=== PATIENT | female | born 1985 | race Caucasian/White ===

== ENCOUNTER → 2017-07-22 | Outpatient (CLI) | payer OTHER ==
[~2017-07-22] VITALS: Ht 154.9 cm; Wt 90.0 kg
[~2017-07-22] MED LIST: AMOXICILLIN875 MG PO; CHROMAGEN,1 CAPSULE PO; DAILY VALUE1 EACH PO; ENDOCET 5-3251 EACH PO; IBUPROFEN800 MG PO; IRON325 M1 PO; KEFLEX500 MG PO; NAPROSYN500 MG PO; PEN-VEE K,VEET500 MG PO; PRAVACHOL40 MG PO; PRENATAL TABLE1 EAC3 PO
[2017-07-22 14:10] VITALS: BP 101/64
== END | disposition home or self-care (01) ==
LOC: IVINF 13:55
DX: Z31.82 Encounter for Rh incompatibility status (principal)
CPT/HCPCS: 96372; J2790

== ENCOUNTER 2017-10-13 08:46 | Inpatient (IN) | payer OTHER ==
[~2017-10-13] VITALS: Ht 157.5 cm; Wt 92.3 kg
[2017-10-13] VITALS (8 sets, daily range): BP systolic 104–124; BP diastolic 54–65
[2017-10-13 11:15] LABS: EOSINOPHIL (%) 0.8 % (0-5); EOSINOPHIL COUNT 0.1 K/uL (0-0.3); HEMATOCRIT 28.5 % (36.0-46.0); IMMATURE GRANULOCYTE (%) 0.6 % (0.0-0.7); IMMATURE GRANULOCYTE COUNT 0.1 K/uL; INSTRUMENT ABS NEUTROPHIL CT 6.8 K/uL; LYMPHOCYTE COUNT 1.1 K/uL (1.0-2.8); MCHC 33.7 G/DL (30.0-36.0); MCV 89.1 FL (83-99); MEAN PLAT.VOLUME 10.4 uM^3 (9.5-12.4); MONOCYTE (%) 5.6 % (3-12); MONOCYTE COUNT 0.5 K/uL (0-0.8); NEUTROPHIL (%) 79.4 % (45-76); NEUTROPHIL COUNT 6.8 K/uL (1.8-6.4); PLATELET COUNT 223 K/uL (156-360); RBC DIS.WIDTH-CV 14.2 % (11.8-14.6); RBC DIS.WIDTH-SD 46.4 % (39-53); WHITE BLOOD COUNT 8.5 K/uL (4.1-10.2)
[2017-10-14 03:28] VITALS: BP 95/50
[2017-10-14 07:13] LABS: EOSINOPHIL (%) 0.6 % (0-5); EOSINOPHIL COUNT 0.1 K/uL (0-0.3); HEMATOCRIT 26.3 % (36.0-46.0); IMMATURE GRANULOCYTE (%) 0.6 % (0.0-0.7); IMMATURE GRANULOCYTE COUNT 0.1 K/uL; LYMPHOCYTE COUNT 1.7 K/uL (1.0-2.8); MCH 29.4 PG (29.0-34.0); MCHC 33.1 G/DL (30.0-36.0); MCV 88.9 FL (83-99); MEAN PLAT.VOLUME 10.3 uM^3 (9.5-12.4); MONOCYTE (%) 8.4 % (3-12); MONOCYTE COUNT 1.1 K/uL (0-0.8); NEUTROPHIL (%) 77.4 % (45-76); PLATELET COUNT 248 K/uL (156-360); RBC DIS.WIDTH-CV 14.3 % (11.8-14.6); RBC DIS.WIDTH-SD 45.8 % (39-53); RED BLOOD COUNT 2.96 M/uL (3.80-5.20); WHITE BLOOD COUNT 12.9 K/uL (4.1-10.2)
[2017-10-14 07:21] VITALS: BP 106/56
[2017-10-14 10:21] VITALS: BP 116/56
[2017-10-14 14:40] VITALS: BP 117/59
[2017-10-14 19:04] VITALS: BP 107/55
[2017-10-14 23:00] VITALS: BP 97/52
[2017-10-15 03:00] VITALS: BP 94/50
[2017-10-15 07:24] VITALS: BP 109/60
[2017-10-15] MEDS ORDERED: ENDOCET 5-3251 EACH PO (10:49)
[2017-10-15] MEDS ORDERED: IBUPROFEN800 MG PO (10:49)
[2017-10-15 12:00] VITALS: BP 109/57
== END 2017-10-15 17:00 | disposition home or self-care (01) | DRG 765 ==
LOC: 2WEST 08:46 → 2SOUTH 10:40 → 2WEST 12:10
PROVIDERS: Obstetrics & Gynecology Obstetrics
DX: O34.211 Maternal care for low transverse scar from previous cesarean delivery (principal); D62 Acute posthemorrhagic anemia; Z37.0 Single live birth; O99.214 Obesity complicating childbirth; E66.9 Obesity, unspecified; Z68.37 Body mass index [BMI] 37.0-37.9, adult; Z30.2 Encounter for sterilization; Z3A.39 39 weeks gestation of pregnancy; O99.02 Anemia complicating childbirth; Z80.0 Family history of malignant neoplasm of digestive organs; Z80.3 Family history of malignant neoplasm of breast; Z80.49 Family history of malignant neoplasm of other genital organs; Z82.5 Family history of asthma and other chronic lower respiratory diseases; Z83.3 Family history of diabetes mellitus
CPT/HCPCS: 85025; 86850; 86870; 86900; 86901; 86905; 86920; 88302; 90686; J0690; J1100; J1200; J1885; J2274; J2405; J7050; J7120